=== PATIENT | female | born 1970 | race Caucasian/White ===

== ENCOUNTER 2018-10-23 11:13 | Emergency (ER) | payer OTHER ==
[~2018-10-23] VITALS: Ht 157.5 cm; Wt 65.8 kg
[2018-10-23] MEDS ORDERED: HYDROCHLOROTHIA25 M2 PO (11:25)
[2018-10-23] MEDS ORDERED: LOVASTATIN 20 M20 MG PO (11:25)
[2018-10-23] MEDS ORDERED: LISINOPRIL10 MG PO (11:25)
[2018-10-23] MEDS ORDERED: NAPROSYN500 MG PO (12:29)
[2018-10-23 12:44] VITALS: BP 135/65
== END 2018-10-23 12:44 | disposition home or self-care (01) ==
LOC: M.ERS 11:13
DX: M13.861 Other specified arthritis, right knee (principal); M22.2X1 Patellofemoral disorders, right knee; E78.5 Hyperlipidemia, unspecified

== ENCOUNTER 2019-03-11 13:23 | Emergency (ER) | payer OTHER ==
[~2019-03-11] VITALS: Ht 157.5 cm; Wt 68.0 kg
[~2019-03-11 13:23] MED LIST: HYDROCHLOROTHIA25 M2 PO; LISINOPRIL10 MG PO; LOVASTATIN 20 M20 MG PO; NAPROSYN500 MG PO
[2019-03-11] MEDS ORDERED: AMBIEN 10 MG TA10 MG PO (13:58)
[2019-03-11] MEDS ORDERED: TRAMADOL 50 MG50 MG PO (13:58)
[2019-03-11] MEDS ORDERED: CLEOCIN HCL300 MG PO (13:58)
[2019-03-11] MEDS ORDERED: NABUMETONE 750750 M1 PO (13:58)
[2019-03-11 14:43] VITALS: BP 139/89
== END 2019-03-11 14:45 | disposition home or self-care (01) ==
LOC: M.ERS 13:23
DX: K04.7 Periapical abscess without sinus (principal); K02.9 Dental caries, unspecified; Z76.0 Encounter for issue of repeat prescription; R22.0 Localized swelling, mass and lump, head; E78.5 Hyperlipidemia, unspecified

== ENCOUNTER 2020-03-28 00:07 | Emergency (ER) | payer OTHER ==
[~2020-03-28] VITALS: Ht 157.5 cm; Wt 59.0 kg
[~2020-03-28 00:07] MED LIST changes: +AMBIEN 10 MG TA10 MG PO; +CLEOCIN HCL300 MG PO; +NABUMETONE 750750 M1 PO; +TRAMADOL 50 MG50 MG PO
[2020-03-28] MEDS ORDERED: Magic Mouthwash SW&SWALLOW (01:13)
[2020-03-28] MEDS ORDERED: HYDROCODON-ACE1 EAC7 PO (01:13)
[2020-03-28 01:45] VITALS: BP 158/79
== END 2020-03-28 01:45 | disposition home or self-care (01) ==
LOC: M.ERS 00:07
DX: H10.9 Unspecified conjunctivitis (principal); K13.79 Other lesions of oral mucosa; E78.5 Hyperlipidemia, unspecified